=== PATIENT | female | born 1990 | race Caucasian/White ===

== ENCOUNTER 2017-06-30 08:44 | Observation (INO) | payer MEDICAID ==
[~2017-06-30] VITALS: Ht 150 cm; Wt 74.4 kg
[2017-06-30 09:15] VITALS: BP 102/65
[2017-06-30] MEDS ORDERED: PREN1TAB80 PO (09:49)
[2017-06-30 10:40] LABS: GLUCOSE,POINT OF CARE 89 MG/DL (70-110)
[2017-06-30 11:00] LABS: BASOPHILS # (AUTO) 0.03 K/uL (0.00-0.20); BASOPHILS % (AUTO) 0.3 % (0.0-2.0); EOSINOPHILS # (AUTO) 0.05 K/uL (0.00-0.70); EOSINOPHILS % (AUTO) 0.49 % (1.0-6.0); HEMATOCRIT 34.8 % (36-46); HEMOGLOBIN 11.8 g/dL (12.0-16.0); LYMPHOCYTES # (AUTO) 1.6 K/uL (1.0-4.8); LYMPHOCYTES % (AUTO) 15.5 % (22.0-44.0); MEAN CORPUSCULAR HEMOGLOBIN 29.9 pg (26.0-34.0); MEAN CORPUSCULAR HGB CONC 33.9 G/dL (31.0-37.0); MEAN CORPUSCULAR VOLUME 88 fL (80-100); MONOCYTES # (AUTO) 0.7 K/uL (0.1-1.0); MONOCYTES % (AUTO) 6.4 % (2.0-9.0); NEUTROPHILS # (AUTO) 7.9 K/uL (1.8-7.7); NEUTROPHILS % (AUTO) 77.3 % (40.0-70.0); RED BLOOD CELL COUNT(AUTO) 3.94 MIL/uL (4.00-5.20); RED CELL DISTRIBUTION WIDTH 14.4 % (11.5-14.5); WHITE BLOOD COUNT (AUTO) 10.2 K/uL (4.5-11.0)
[2017-06-30 11:08] LABS: ANION GAP 12 mmol/L (8-16); CARBON DIOXIDE 23 mmol/L (22-29); CHLORIDE 105 mmol/L (98-107); CREATININE 0.57 mg/dL (0.60-1.30); GLOMERULAR FILTR. RATE CALC > 60 mL/min (>60); POTASSIUM 3.7 mmol/L (3.5-5.1); SODIUM SERUM 140 mmol/L (136-145); UREA NITROGEN, BLOOD 6 mg/dL (7-18)
[2017-06-30 11:14] LABS: ALANINE AMINOTRANSFERASE 20 U/L (12-78); ASPARTATE AMINOTRANSFERASE 19 U/L (15-37); BILIRUBIN,TOTAL 0.3 mg/dL (0.1-1.0); TOTAL PROTEIN, SERUM 7.3 g/dL (6.4-8.2)
[2017-06-30 11:46] LABS: APPEARANCE,URINE CLOUDY (CLEAR); GLUCOSE, URINE (UA) NEGATIVE (NEGATIVE); KETONES,URINE NEGATIVE (NEGATIVE); LEUKOCYTE ESTERASE ,URINE TRACE (NEGATIVE); OCCULT BLOOD,URINE NEGATIVE (NEGATIVE); PROTEIN,URINE NEGATIVE (NEGATIVE)
[2017-06-30] MEDS: RINGERS SOLUTION,LACTATED 1,000 ML IV SCH (11:51)
[2017-06-30 11:55] LABS: ADD UA MICROSCOPIC YES
[2017-06-30 12:02] LABS: RBC,URINE None Seen /HPF (0-2); SQUAMOUS EPITHELIAL CELL,UR None Seen /LPF (None Seen); WBC,URINE 0-2 /HPF (0-5)
[2017-06-30] MEDS ORDERED: DONNATAL/LIDOCAINE/MAALOX 55 ML BOTTLE PO ONE (12:45)
[2017-06-30] MEDS ORDERED: ACETAMINOPHEN/CODEINE 300-30 MG TABLET PO ONE (15:00)
== END 2017-06-30 17:45 | disposition home or self-care (01) ==
LOC: EMS 08:46 → 4S 08:55
PROVIDERS: ADMIT Obstetrics & Gynecology; ATTEND Obstetrics & Gynecology
DX: O26.893 Other specified pregnancy related conditions, third trimester (principal); R10.13 Epigastric pain; O24.419 Gestational diabetes mellitus in pregnancy, unspecified control; Z3A.33 33 weeks gestation of pregnancy
CPT/HCPCS: 36415; 59025; 76700; 80053; 80307 ×8; 81001; 82731; 82962; 83690; 85025; 96360; 96361; G0378; J7120; Z7610

== ENCOUNTER 2019-08-13 17:10 | Observation (INO) | payer MEDICAID ==
[~2019-08-13] VITALS: Ht 157.5 cm; Wt 83.5 kg
[~2019-08-13 17:10] MED LIST: PREN1TAB80 PO
[2019-08-13 18:39] VITALS: BP 119/69
[2019-08-13] MEDS ORDERED: DIPHENOXYLATE/ATROP 2.5-0.025 MG TABLET PO ONE (18:45)
[2019-08-13] MEDS ORDERED: DEXTROSE 5%-LACTATED RINGERS 1,000 ML IV SCH (18:45)
[2019-08-13 20:54] LABS: INFLUENZA TYPE A NEGATIVE FOR TYPE A (NEGATIVE); INFLUENZA TYPE B NEGATIVE FOR TYPE B (NEGATIVE)
== END 2019-08-13 21:41 | disposition home or self-care (01) ==
LOC: 4S 17:10
PROVIDERS: ADMIT Obstetrics & Gynecology; ATTEND Obstetrics & Gynecology
DX: O99.89 Other specified diseases and conditions complicating pregnancy, childbirth and the puerperium (principal); R19.7 Diarrhea, unspecified; Z3A.37 37 weeks gestation of pregnancy
CPT/HCPCS: 81002; 87804; G0378

== ENCOUNTER 2019-08-24 15:34 | Observation (INO) | payer MEDICAID ==
[2019-08-24 16:30] VITALS: BP 123/81
[2019-08-24 17:26] LABS: BASOPHILS % (AUTO) 0.5 % (0.0-2.0); EOSINOPHILS % (AUTO) 0.4 % (1.0-6.0); HEMATOCRIT 37.3 % (36-46); HEMOGLOBIN 12.5 g/dL (12.0-16.0); LYMPHOCYTES # (AUTO) 1.4 K/uL (1.0-4.8); LYMPHOCYTES % (AUTO) 19.9 % (22.0-44.0); MEAN CORPUSCULAR HEMOGLOBIN 27.2 pg (26.0-34.0); MEAN CORPUSCULAR HGB CONC 33.4 G/dL (31.0-37.0); MEAN CORPUSCULAR VOLUME 81 fL (80-100); MONOCYTES # (AUTO) 0.6 K/uL (0.1-1.0); MONOCYTES % (AUTO) 7.8 % (2.0-9.0); NEUTROPHILS # (AUTO) 5.1 K/uL (1.8-7.7); NEUTROPHILS % (AUTO) 71.4 % (40.0-70.0); RED BLOOD CELL COUNT(AUTO) 4.59 MIL/uL (4.00-5.20); RED CELL DISTRIBUTION WIDTH 15.3 % (11.5-14.5)
[2019-08-24 17:35] LABS: ANION GAP 12 mmol/L (8-16); CARBON DIOXIDE 23 mmol/L (22-29); CHLORIDE 103 mmol/L (98-107); CREATININE 0.82 mg/dL (0.60-1.30); GLUCOSE,RANDOM 76 mg/dL (70-110); POTASSIUM 4.2 mmol/L (3.5-5.1); SODIUM SERUM 138 mmol/L (136-145); UREA NITROGEN, BLOOD 11 mg/dL (7-18)
[2019-08-24 17:36] LABS: GLOMERULAR FILTR. RATE CALC > 60 mL/min (>60)
[2019-08-24 17:41] LABS: ALANINE AMINOTRANSFERASE 23 U/L (12-78); ALBUMIN 2.8 g/dL (3.4-5.0); ALKALINE PHOSPHATASE 147 U/L (46-116); ASPARTATE AMINOTRANSFERASE 20 U/L (15-37); BILIRUBIN,TOTAL 0.4 mg/dL (0.1-1.0); CALCIUM, TOTAL 10.2 mg/dL (8.8-10.5); TOTAL PROTEIN, SERUM 7.7 g/dL (6.4-8.2); URIC ACID 6.3 mg/dL (2.6-7.2)
[2019-08-24 17:45] LABS: PLATELET COUNT (AUTO) 131 K/uL (150-450); PLATELET MORPHOLOGY COMMENT GIANT PLTS PRESENT
[2019-08-24 18:30] LABS: APPEARANCE,URINE CLOUDY (CLEAR); BILIRUBIN,URINE NEGATIVE (NEGATIVE); GLUCOSE, URINE (UA) NEGATIVE (NEGATIVE); KETONES,URINE TRACE mg/dL (NEGATIVE); LEUKOCYTE ESTERASE ,URINE NEGATIVE (NEGATIVE); NITRATE,URINE NEGATIVE (NEGATIVE); OCCULT BLOOD,URINE NEGATIVE (NEGATIVE); PROTEIN,URINE POS 1+ (NEGATIVE); UROBILINOGEN,URINE 0.2 mg/dL (<=1.0)
[2019-08-24 18:49] LABS: CREATININE,URINE RANDOM 208.1 mg/dL (30.0-125.0); PROTEIN,URINE RANDOM 48 mg/dL (0-11.9)
== END 2019-08-24 18:50 | disposition home or self-care (01) ==
LOC: 4S 15:34
PROVIDERS: ADMIT Obstetrics & Gynecology; ATTEND Obstetrics & Gynecology
DX: O36.8330 Maternal care for abnormalities of the fetal heart rate or rhythm, third trimester, not applicable or unspecified (principal); O26.893 Other specified pregnancy related conditions, third trimester; Z3A.38 38 weeks gestation of pregnancy
CPT/HCPCS: 36415; 80053; 81003; 82570; 84156; 84550; 85025; G0378

== ENCOUNTER 2019-08-26 03:35 | Inpatient (IN) | payer MEDICAID ==
[~2019-08-26] VITALS: Ht 157.5 cm; Wt 81.6 kg
[2019-08-26] MEDS ORDERED: RINGERS SOLUTION,LACTATED 1,000 ML IV ONE (03:52)
[2019-08-26] MEDS ORDERED: OXYTOCIN 30 UNITS/LACT RINGERS 500 ML IV PRN (03:56)
[2019-08-26] MEDS ORDERED: RINGERS SOLUTION,LACTATED 1,000 ML IV PRN (03:56)
[2019-08-26] MEDS ORDERED: OXYTOCIN 30 UNITS/LACT RINGERS 500 ML IV ONE (03:56)
[2019-08-26] MEDS ORDERED: LIDOCAINE/PF 1% 30 ML VIAL INJ PRN (04:00)
[2019-08-26] MEDS ORDERED: METOCLOPRAMIDE HCL 5 MG/ML 2 ML VIAL IVP PRN (04:00)
[2019-08-26] MEDS ORDERED: CITRIC ACID/SODIUM CITRATE 30 ML SOLUTION UDCUP PO PRN (04:00)
[2019-08-26] MEDS: RINGERS SOLUTION,LACTATED 1,000 ML IV SCH ×2 (04:31→04:58)
[2019-08-26] MEDS ORDERED: LIDOCAINE/PF 2% 5 ML VIAL ONE (04:33)
[2019-08-26] MEDS ORDERED: ROPIVACAINE HCL/PF 0.2% 100 ML ED ONE (04:33)
[2019-08-26 04:42] LABS: BASOPHILS % (AUTO) 0.2 % (0.0-2.0); EOSINOPHILS % (AUTO) 0.1 % (1.0-6.0); HEMATOCRIT 36.9 % (36-46); LYMPHOCYTES # (AUTO) 1.5 K/uL (1.0-4.8); LYMPHOCYTES % (AUTO) 17.9 % (22.0-44.0); MEAN CORPUSCULAR HEMOGLOBIN 26.4 pg (26.0-34.0); MEAN CORPUSCULAR HGB CONC 32.4 G/dL (31.0-37.0); MEAN CORPUSCULAR VOLUME 82 fL (80-100); MONOCYTES # (AUTO) 0.7 K/uL (0.1-1.0); MONOCYTES % (AUTO) 7.8 % (2.0-9.0); NEUTROPHILS # (AUTO) 6.4 K/uL (1.8-7.7); RED BLOOD CELL COUNT(AUTO) 4.52 MIL/uL (4.00-5.20); RED CELL DISTRIBUTION WIDTH 15.6 % (11.5-14.5)
[2019-08-26] MEDS ORDERED: ONDANSETRON HCL 4 MG/2 ML VIAL IVP PRN (05:00)
[2019-08-26] MEDS ORDERED: ROPIVACAINE HCL/PF 0.2% 100 ML ED PRN (05:00)
[2019-08-26] MEDS ORDERED: DiphenhydrAMINE HCL 50 MG/ML VIAL IVP PRN (05:00)
[2019-08-26] MEDS ORDERED: NALBUPHINE HCL 10 MG/ML VIAL IVP PRN (05:00)
[2019-08-26 05:19] LABS: PLATELET COUNT (AUTO)-OB 116 K/uL (150-450); PLATELET MORPHOLOGY COMMENT GIANT PLTS PRESENT
[2019-08-26] MEDS ORDERED: DOCO200C5 PO (06:06)
[2019-08-26] MEDS ORDERED: INFLUENZA VIRUS VACCINE QVS 2019-20 (3YR+)/PF 60 MCG/0.5 ML SYRINGE IM ONE (06:15)
[2019-08-26] MEDS ORDERED: OXYTOCIN 20 UNITS/LACT RINGERS 1,000 ML IV ONE (07:20)
[2019-08-26] MEDS ORDERED: OXYGEN THERAPY IH SCH (08:00)
[2019-08-26] MEDS: OXYTOCIN 20 UNITS/LACT RINGERS 1,000 ML IV SCH ×2 (09:15→09:47)
[2019-08-26] MEDS ORDERED: BENZOCAINE 20%/MENTHOL 56 GM SPRAY CANISTER TP PRN (09:30)
[2019-08-26] MEDS ORDERED: SENNA/DOCUSATE SODIUM 8.6-50 MG TABLET PO PRN (09:30)
[2019-08-26] MEDS ORDERED: MEASLES/MUMPS/RUBELLA VACCINE, LIVE 0.5 ML/VIAL SQ ONE (09:30)
[2019-08-26] MEDS ORDERED: GLYCERIN/WITCH HAZEL LEAF 40 PADS JAR TP PRN (09:30)
[2019-08-26] MEDS ORDERED: ACETAMINOPHEN/CODEINE 300-30 MG TABLET PO PRN (09:30)
[2019-08-26] MEDS ORDERED: LANOLIN 7 GM OINTMENT TP PRN (09:30)
[2019-08-26] MEDS: IBUPROFEN 600 MG TABLET PO PRN ×2 (12:28→20:20)
[2019-08-26] MEDS: MAGNESIUM HYDROXIDE SUSPENSION 30 ML UDCUP PO PRN (20:21)
[2019-08-27 06:36] LABS: BASOPHILS % (AUTO) 0.3 % (0.0-2.0); EOSINOPHILS % (AUTO) 0.7 % (1.0-6.0); HEMATOCRIT 32.7 % (36-46); HEMOGLOBIN 10.9 g/dL (12.0-16.0); LYMPHOCYTES # (AUTO) 1.9 K/uL (1.0-4.8); LYMPHOCYTES % (AUTO) 18.9 % (22.0-44.0); MEAN CORPUSCULAR HEMOGLOBIN 27.2 pg (26.0-34.0); MEAN CORPUSCULAR HGB CONC 33.2 G/dL (31.0-37.0); MEAN CORPUSCULAR VOLUME 82 fL (80-100); MONOCYTES # (AUTO) 0.6 K/uL (0.1-1.0); MONOCYTES % (AUTO) 6.4 % (2.0-9.0); NEUTROPHILS # (AUTO) 7.4 K/uL (1.8-7.7); NEUTROPHILS % (AUTO) 73.7 % (40.0-70.0); PLATELET COUNT (AUTO)-OB 111 K/uL (150-450); RED CELL DISTRIBUTION WIDTH 15.4 % (11.5-14.5)
[2019-08-27 06:52] LABS: PLATELET MORPHOLOGY COMMENT GIANT PLTS PRESENT
[2019-08-27] MEDS: IBUPROFEN 600 MG TABLET PO PRN (06:52)
[2019-08-27] MEDS: MAGNESIUM HYDROXIDE SUSPENSION 30 ML UDCUP PO PRN (08:03)
[2019-08-27] MEDS ORDERED: IBUP-2071 PO (10:07)
[2019-08-27] MEDS ORDERED: DOCU-275 PO (10:07)
[2019-08-27] MEDS ORDERED: FERR-89 PO (10:08)
== END 2019-08-27 12:45 | disposition home or self-care (01) | DRG 560 ==
LOC: 4S 03:35 → OBSVTOIN 03:35
PROVIDERS: ADMIT Obstetrics & Gynecology; ATTEND Obstetrics & Gynecology
PROC: 10E0XZZ Delivery of Products of Conception, External Approach (ICD-10-PCS; principal; 2019-08-26)
PROC: 0W8NXZZ Division of Female Perineum, External Approach (ICD-10-PCS; 2019-08-26)
PROC: 3E0R3BZ Introduction of Anesthetic Agent into Spinal Canal, Percutaneous Approach (ICD-10-PCS; 2019-08-26)
PROC: 00HU33Z Insertion of Infusion Device into Spinal Canal, Percutaneous Approach (ICD-10-PCS; 2019-08-26)
PROC: 3E02340 Introduction of Influenza Vaccine into Muscle, Percutaneous Approach (ICD-10-PCS; 2019-08-26)
DX: O80 Encounter for full-term uncomplicated delivery (principal); Z23 Encounter for immunization; Z37.0 Single live birth; Z3A.39 39 weeks gestation of pregnancy
CPT/HCPCS: 86850; 86900; 86901; 90686; J2590; J2795; J3490; J7120

== ENCOUNTER 2022-06-01 20:41 | Emergency (ER) | payer MEDICAID ==
[~2022-06-01] VITALS: Ht 154.9 cm; Wt 65.0 kg
[~2022-06-01 20:41] MED LIST changes: +DOCU-385 PO; +FERR325T27 PO; +IBUP-2071 PO
[2022-06-01] MEDS ORDERED: LIDOCAINE 1% 10 ML VIAL SQ ONE (22:00)
[2022-06-01] MEDS ORDERED: BACITRACIN 0.9 GM PACKET OINTMENT TP ONE (22:00)
[2022-06-01] MEDS ORDERED: PERTUSS(ACELL),DIPH,TET VAC/PF 0.5 ML SYRINGE IM. ONE (22:00)
[2022-06-01] MEDS ORDERED: CEPHALEXIN MONOHYDRATE 500 MG CAPSULE PO ONE (23:00)
[2022-06-01] MEDS ORDERED: DOXYCYCLINE HYCLATE 100 MG TABLET PO ONE (23:00)
[2022-06-02] MEDS ORDERED: BACI28OI29 TP (00:52)
[2022-06-02] MEDS ORDERED: CEPH-558 PO (00:52)
[2022-06-02] MEDS ORDERED: IBUP-1554 PO (00:52)
[2022-06-02 01:30] VITALS: BP 121/73
== END 2022-06-02 03:33 | disposition home or self-care (01) ==
LOC: EDBD 20:59 → EMS 20:59
DX: S61.412A Laceration without foreign body of left hand, initial encounter (principal); Z79.899 Other long term (current) drug therapy; W26.0XXA Contact with knife, initial encounter; Y93.89 Activity, other specified; Y92.89 Other specified places as the place of occurrence of the external cause; Y99.8 Other external cause status
CPT/HCPCS: 99283; 73130; 90715; 90471; 12002; J3490

== ENCOUNTER 2023-08-18 22:01 | Emergency (ER) | payer MEDICAID ==
[~2023-08-18] VITALS: Ht 152.4 cm; Wt 68.2 kg
[~2023-08-18 22:01] MED LIST changes: +BACI28.410 TP; +CEPH-558 PO; +IBUP-1493 PO; +IBUP-1554 PO; -IBUP-2071 PO
[2023-08-18 22:53] VITALS: TEMP 98.6
[2023-08-18] MEDS ORDERED: METH-812 PO (23:21)
[2023-08-18] MEDS ORDERED: IBUP-1492 PO (23:21)
[2023-08-18] MEDS ORDERED: KETOROLAC TROMETHAMINE 30 MG/ML VIAL IM ONE (23:30)
[2023-08-18] MEDS ORDERED: METHOCARBAMOL 500 MG TABLET PO ONE (23:30)
[2023-08-18] MEDS ORDERED: ONDANSETRON HCL 4 MG TABLET PO ONE (23:30)
[2023-08-18 23:40] VITALS: BP 126/82; PULSE 58; RESP 16
== END 2023-08-18 23:41 | disposition home or self-care (01) ==
LOC: EMS 22:06
DX: G43.909 Migraine, unspecified, not intractable, without status migrainosus (principal); M25.512 Pain in left shoulder; Z98.890 Other specified postprocedural states
CPT/HCPCS: 99283; 96372; J1885; Q0162

== ENCOUNTER 2023-10-20 00:54 | Emergency (ER) | payer MEDICAID ==
[~2023-10-20] VITALS: Ht 152.4 cm; Wt 67.3 kg
[~2023-10-20 00:54] MED LIST changes: +IBUP-1492 PO; +METH-812 PO
[2023-10-20 01:39] LABS: EOSINOPHILS % (AUTO) 1.4 % (1.0-6.0); HEMATOCRIT 37.9 % (36-46); HEMOGLOBIN 13.1 g/dL (12.0-16.0); LYMPHOCYTES # (AUTO) 2.8 K/uL (1.0-4.8); LYMPHOCYTES % (AUTO) 29.3 % (22.0-44.0); MEAN CORPUSCULAR HEMOGLOBIN 31.2 pg (26.0-34.0); MEAN CORPUSCULAR HGB CONC 34.5 G/dL (31.0-37.0); MEAN CORPUSCULAR VOLUME 91 fL (80-100); MONOCYTES # (AUTO) 0.8 K/uL (0.1-1.0); MONOCYTES % (AUTO) 8.4 % (2.0-9.0); NEUTROPHILS # (AUTO) 5.7 K/uL (1.8-7.7); NEUTROPHILS % (AUTO) 59.9 % (40.0-70.0); PLATELET COUNT (AUTO) 287 K/uL (150-450); RED BLOOD CELL COUNT(AUTO) 4.19 MIL/uL (4.00-5.20); RED CELL DISTRIBUTION WIDTH 13.2 % (11.5-14.5); WHITE BLOOD COUNT (AUTO) 9.5 K/uL (4.5-11.0)
[2023-10-20 01:48] LABS: ANION GAP 6 mmol/L (8-16); CALCIUM, TOTAL 8.9 mg/dL (8.8-10.5); CARBON DIOXIDE 28 mmol/L (22-29); CHLORIDE 104 mmol/L (98-107); CREATININE 0.84 mg/dL (0.60-1.30); GLOMERULAR FILTR. RATE CALC > 60 mL/min (>60); GLUCOSE,RANDOM 117 mg/dL (70-110); SODIUM SERUM 138 mmol/L (136-145); UREA NITROGEN, BLOOD 16 mg/dL (7-18)
[2023-10-20 01:53] LABS: ALANINE AMINOTRANSFERASE 34 U/L (12-78); ALBUMIN 3.6 g/dL (3.4-5.0); ALKALINE PHOSPHATASE 132 U/L (46-116); ASPARTATE AMINOTRANSFERASE 15 U/L (15-37); BILIRUBIN,TOTAL 0.2 mg/dL (0.1-1.0); LIPASE 36 U/L (16-77); TOTAL PROTEIN, SERUM 7.3 g/dL (6.4-8.2)
[2023-10-20] MEDS ORDERED: ONDANSETRON HCL 4 MG/2 ML VIAL IVP ONE (02:00)
[2023-10-20] MEDS ORDERED: KETOROLAC TROMETHAMINE 30 MG/ML VIAL IVP ONE (02:00)
[2023-10-20 04:00] VITALS: TEMP 97.5
[2023-10-20] MEDS ORDERED: ONDA-104 PO (08:34)
[2023-10-20] MEDS ORDERED: ACET-66 PO (08:34)
[2023-10-20 08:50] VITALS: BP 122/61; PULSE 82; RESP 14
== END 2023-10-20 09:14 | disposition home or self-care (01) ==
LOC: EMS 00:55
DX: K80.70 Calculus of gallbladder and bile duct without cholecystitis without obstruction (principal); Z98.890 Other specified postprocedural states
CPT/HCPCS: 99285; 96374; 76700; 96375; 80053; 83690; 84703; 85025; 36415; J1885; J2405

== ENCOUNTER 2024-02-10 18:43 | Emergency (ER) | payer MEDICAID ==
[~2024-02-10] VITALS: Ht 152.4 cm; Wt 68.2 kg
[~2024-02-10 18:43] MED LIST changes: +ACET-66 PO; +ONDA-104 PO
[2024-02-10 19:04] VITALS: BP 128/77; PULSE 74; RESP 18; TEMP 97.9
[2024-02-10] MEDS ORDERED: ACETAMINOPHEN 325 MG TABLET PO ONE (19:30)
== END 2024-02-10 19:59 | disposition left against medical advice (07) ==
LOC: EMS 18:51
DX: R51.9 Headache, unspecified (principal); Z90.49 Acquired absence of other specified parts of digestive tract
CPT/HCPCS: 99282; Z7502; Z7610

== ENCOUNTER 2024-07-07 03:37 | Emergency (ER) | payer MEDICAID ==
[~2024-07-07] VITALS: Ht 152.4 cm; Wt 68.2 kg
[2024-07-07 03:42] VITALS: BP 121/85; PULSE 109; RESP 20; TEMP 98.7
[2024-07-07] MEDS ORDERED: ONDA-104 PO (03:45)
== END 2024-07-07 05:00 | disposition left against medical advice (07) ==
LOC: EMS 03:37
DX: R07.89 Other chest pain (principal); R00.2 Palpitations; R11.2 Nausea with vomiting, unspecified; Z53.21 Procedure and treatment not carried out due to patient leaving prior to being seen by health care provider
CPT/HCPCS: 93005

== ENCOUNTER 2024-07-25 20:06 | Emergency (ER) | payer MEDICAID ==
[~2024-07-25] VITALS: Ht 152.4 cm; Wt 65.5 kg
[~2024-07-25 20:06] MED LIST changes: -ACET-66 PO; -BACI28.410 TP; -CEPH-558 PO; -DOCU-385 PO; -FERR325T27 PO; -IBUP-1492 PO; -IBUP-1493 PO; -IBUP-1554 PO; -METH-812 PO; -PREN1TAB80 PO
[2024-07-25 20:17] VITALS: TEMP 97.6
[2024-07-25] MEDS: OxyCODONE HCL/ACETAMINOPHEN 5-325 MG TABLET PO ONE (22:51)
[2024-07-25] MEDS: PERTUSS(ACELL),DIPH,TET/PF 0.5 ML SYRINGE [ADULT] IM. ONE (22:51)
[2024-07-25] MEDS ORDERED: AMOX-457 PO (22:59)
[2024-07-25 23:00] VITALS: BP 120/86; PULSE 78; RESP 16; O2SAT 98
[2024-07-25] MEDS: AMOX TR/POT CLAV 875 MG/125 MG TABLET PO ONE (23:01)
== END 2024-07-25 22:57 | disposition home or self-care (01) ==
LOC: EMS 20:07
DX: S81.832A Puncture wound without foreign body, left lower leg, initial encounter (principal); W54.0XXA Bitten by dog, initial encounter; Y93.89 Activity, other specified; Y92.89 Other specified places as the place of occurrence of the external cause; Y99.8 Other external cause status
CPT/HCPCS: 90471; 90715; 99283